=== PATIENT | female | born 1950 | race Caucasian/White ===

== ENCOUNTER → 2016-06-25 | Outpatient (CLI) | payer OTHER ==
[~2016-06-25] MED LIST: ALEVE220 M1 PO; ASA325 MG PO; BENTYL-DPS20 MG PO; CALCIUM600 MG PO; CULTURELLE1 CAP PO; FLONASE 0.05% D16 GM NS; MULTIPLE VITAM1 EACH PO; OXY IR DPS5 MG PO; PROTONIX40 MG PO; SALINE NASAL M126 ML NS; SENOKOT S1 TAB PO; TEARS NATURAL D15 ML OU; TYLENOL DPS325 MG PO; ULTRAM DPS50 MG PO; VITAMIN D-32000 UNI1 PO; XALATAN2.5 ML OU; ZYRTEC DPS10 MG PO
== END | disposition home or self-care (01) ==
LOC: PTH.S 14:00
DX: R19.7 Diarrhea, unspecified (principal)

== ENCOUNTER 2016-07-13 13:27 | Inpatient (IN) | payer OTHER ==
[~2016-07-13] VITALS: Ht 149.9 cm; Wt 56.3 kg
[~2016-07-13 13:27] MED LIST changes: -BENTYL-DPS20 MG PO; -CULTURELLE1 CAP PO
--- NOTE | 2016-07-18 07:57 | HP ---
ADMIT: 07/13/2016 RM/LOC: 519 [facility] MR#: [id number] 26[address] [facility] [address] [place], [place] [address] MYRNA SMYTH [address] [place] [address] History and Physical SEX: F AGE: 65 : 1950 DATE OF SERVICE: CHIEF COMPLAINT: Diarrhea. HISTORY OF PRESENT ILLNESS: The patient is a 65-year-old, white female, who presents to the office today just continually feeling worse with her diarrhea illness. She had been treated with Augmentin for severe sinus infection that she had in May. A few days into treatment she started developing severe diarrhea and tried backing off on her dose and then finally stopped, but the diarrhea never resolved. She added in a probiotic and that is still was not helping, so we did some stool cultures. Did come back positive for C. diff. She said the stools had been bloody at first, but after we started some Flagyl that part improved. The diarrhea really never resolved though. After several days on the Flagyl alone. We ended up adding vancomycin 125 mg every 6 hours. She took that for several more days and still noted no improvement and was in kind of feeling dehydrated and lost about 8 pounds through all of this, so I did increase her dose on vancomycin to 500 mg q.6 hours on Saturday, the . Despite that increase in dose, she still is feeling no better. She is having uncontrollable diarrhea that usually kicks in toward the afternoon and she has been keeping fluids down okay, but it is coming out just as fast as it goes in and had started being more bloody again this week. She has felt hot at times and chilled, but has not been running a fever that she is aware of. Does get crampy abdominal pain before the bowel movement starts picking up, was really starting to feel weak and lightheaded and was unable to get out and do her shopping that she needed to do and has things were not moving in the right direction, elected to admit her for inpatient treatment of this infection. PAST MEDICAL HISTORY: The patient has glaucoma that she takes eye drops for. Also, has osteopenia, but is not on medications due to a low risk score. No personal history of fractures. She had a colonoscopy done for screening in February that showed a possible polyp and some rectal irritation, but on biopsies instead of a polyp they noticed some inflammation and they called it focal active colitis with a prominent lymphoid follicle. She did have some focal cryptitis noted as well. She started on probiotic after that and really felt like her bowels were fairly regular then until she started on the Augmentin for the sinus infection. She has also had problems with allergic rhinitis. Has only been in the hospital for childbirth. HOME MEDICATIONS: Include: 1. Latanoprost 0.005% drops 1 drop at bedtime in both eyes. 2. Vitamin D3, 2000 units daily. 3. Calcium 1200 mg daily. 4. Multivitamin 1 daily. 5. She has also been this week on vancomycin 500 mg q.6 hours p.r.n. ALLERGIES: NO KNOWN DRUG ALLERGIES. FAMILY HISTORY: Mother had Alzheimer's, but ultimately was admitted and of complications from C. diff colitis. Hypertension also runs in the family. ADMIT: 07/13/2016 RM/LOC: 519 [facility] MR#: [id number] [address] [place] [id number] MYRNA SMYTH [address] [place] [address] History and Physical SEX: F AGE: 65 : 1950 SOCIAL HISTORY: The patient lives independently. 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 No tobacco, alcohol, or drug use. REVIEW OF SYSTEMS: CONSTITUTIONAL: Just generalized weakness. HEENT: Denies headaches, nasal congestion, sore throats, or mouth sores. CARDIAC: No chest pain or palpitations. RESPIRATORY: Mildly short of breath with activity, but no cough. GASTROINTESTINAL: As above. GENITOURINARY: She is still urinating a fair amount and it is fairly clear when she goes. No dysuria. SKIN: Denies any rashes. NEUROLOGIC: No focal numbness, tingling. Or weakness. Just generalized malaise. She has noticed her memory has not been as good since she has been so ill with this. MUSCULOSKELETAL: Denies feeling achy. PHYSICAL EXAMINATION: GENERAL: The patient is alert and oriented in no acute distress. VITAL SIGNS: Temp was 97.5, blood pressure 105/74, pulse 85, respirations 16, and sats are 95% on room air, and weight is 122 pounds down from a baseline of 132. HEENT: Head is atraumatic and normocephalic. Sclerae are clear. Pupils are round and reactive. Nares are patent. Oropharynx looks moist and without lesions. NECK: Supple with no lymphadenopathy. HEART: Regular without murmurs. LUNGS: Sound clear to auscultation bilaterally. ABDOMEN: Soft, but mildly tender throughout. No rebound or guarding are noted though. EXTREMITIES: No edema. No rashes are noted. No focal neurologic deficits. LABORATORY DATA: Her white blood cell count is 6.0, hemoglobin 12.9, and platelets 316. CMP shows mildly low potassium at 3.2, albumin is low at 3.0, otherwise her LFTs are all normal. CRP is mildly elevated at 1.31. Procalcitonin was 0.1. Stool white blood cells are negative. Other repeat stool studies are still pending. ADMIT: 07/13/2016 RM/LOC: 519 [facility] MR#: [id number] [address] [address] MYRNA SMYTH [address] [place] [address] History and Physical SEX: F AGE: 65 : 1950 ASSESSMENT: 1. Clostridium difficile colitis with persistent diarrhea that is bloody. 2. Dehydration. 3. Hypokalemia. 4. Abdominal pain. 5. Glaucoma. PLAN: We will admit, and we will have Infectious Disease along with Surgery follow along. Would consider possible flare of some chronic form of colitis given the colitis on her recent colonoscopy. We will await further input from her consults. We will rehydrate and replace her potassium as well. Macarena Ramesh MD/ mabel JOB #: [id number] CC: Macarena Ramesh, Attending Physician Macarena Ramesh, Family Physician
[2016-07-19] MEDS ORDERED: CULTURELLE1 CAP PO (08:33)
[2016-07-19] MEDS ORDERED: BENTYL-DPS20 MG PO (08:34)
--- NOTE | 2016-07-20 09:31 | CO ---
ADMIT: 07/13/2016 RM/LOC: 519 [facility] MR#: [id number] [address] [facility] [address] [place] [id number] MYRNA MCDONALD [address] [address] Consultation SEX: F AGE: 65 : 1950 DATE OF CONSULTATION: 07/13/2016 ATTENDING PHYSICIAN: Macarena Ramesh CONSULTING PHYSICIAN: Eva Fowler MD REASON FOR CONSULT: Recurrent C. difficile colitis. Thank you, Dr. Ramesh, for the consult and involving me in this patient's care. HISTORY OF PRESENT ILLNESS: Ms. Mcdonald is a 65-year-old woman, who presented to the clinic with persistent severe diarrhea and was found to have Clostridium difficile colitis in the beginning of June. Around the end of May, she took Augmentin for sinusitis infection, which caused the diarrhea. She was initially started on metronidazole 500 mg every 8 hours followed by oral vancomycin 125 mg every 6 hours. She continued to have diarrhea and also complained of occasional bloody diarrhea hence her vancomycin was increased to 500 mg every 6 hours on July 10, 2015. She continued to have 10 to 20 bowel movements in a day starting in midafternoon and occasional bloody stools. She denied any nausea or vomiting, but given worsening diarrhea and feeling weak, She was admitted to the hospital today for further management. She had a colonoscopy in February 2016, which showed focal active colitis in descending colon as well as rectum. There was also colonic mucosa with a prominent lymphoid follicle. The patient denies any prior history of inflammatory bowel disease. Per the Pathology, there was also focal cryptitis present. PAST MEDICAL HISTORY: Glaucoma, history of recent Clostridium difficile colitis, and allergic rhinitis. FAMILY HISTORY: Significant for colon cancer in her father and complications from C. difficile colitis in her mother. HOME MEDICATIONS: Reviewed. ALLERGIES: NO KNOWN DRUG ALLERGIES. REVIEW OF SYSTEMS: A 10-point review of systems negative except as mentioned in HPI. PHYSICAL EXAMINATION: VITAL SIGNS: Current temperature 97.5, heart rate 85, respirations 16, blood pressure 105/74, and 95% on room air. GENERAL: In no acute distress. HEENT: Head is normocephalic and atraumatic. Extraocular movements are intact. Oral mucosa is moist. LYMPH: No palpable anterior/posterior cervical or supraclavicular lymphadenopathy. CHEST: Clear to auscultation bilaterally. No wheezes, rales, or rhonchi. CARDIOVASCULAR: S1 and S2 heard. Regular rate and rhythm. ADMIT: 07/13/2016 RM/LOC: 519 [facility] MR#: [id number] [address] [address] MYRNA MCDONALD [address] [place] [address] Consultation SEX: F AGE: 65 : 1950 ABDOMEN: Soft. Active bowel sounds. No tenderness to deep palpation. The patient, however, does report some pain in left lower quadrant. PSYCH: Normal affect. Memory intact. SKIN: No rash noted on exposed skin. NEUROLOGIC: Awake, alert, and oriented x3. DATA REVIEW: CMP shows potassium of 3.2, creatinine 1, CRP 1.3. Normal AST and ALT. CBC shows white count of 6, hemoglobin 12.9, and platelets of 316. ASSESSMENT/PLAN: 1. Diarrhea likely Clostridium difficile colitis relapse. We will repeat her stool for C. difficile PCR and enteric pathogen panel. We will also check stool wbc. I agree with continuing IV metronidazole 500 mg every 8 hours and oral vancomycin, I will change again to 125 mg every 6 hours. I will also repeat CT of abdomen and pelvis. If her diarrhea worsens, we will consider adding fidaxomicin 200 mg twice daily. There is no evidence of ileus on physical exam. Given her bloody diarrhea and report of cryptitis on pathology, inflammatory bowel disease is also in differential. Surgery has been consulted, and she would likely need a repeat colonoscopy or sigmoidoscopy and repeat biopsy. 2. Glaucoma. Thank you for the consult, and I will continue to follow the patient. Eva Fowler MD/ mabel JOB #: [id number] CC: Macarena Ramesh, Attending Physician Macarena Ramesh, Family Physician
--- NOTE | 2016-07-24 13:27 | CO ---
ADMIT: 07/13/2016 RM/LOC: 519 [facility] MR#: [id number] 2620 [facility] [address] [place], [place] [address] MYRNA SMYTH [address] [place], [place] [id number] Consultation SEX: F AGE: 65 : 1950 DATE OF CONSULTATION: 07/13/2016 ATTENDING PHYSICIAN: Macarena Ramesh CONSULTING PHYSICIAN: Naeem Sharma MD REASON FOR CONSULTATION: C. diff colitis. HISTORY OF PRESENT ILLNESS: This patient is a very pleasant, 65-year-old female who sounded like several weeks ago had sinus infection, put her on Augmentin, ultimately at some point got diarrhea, and at some point was placed on some Flagyl, had a C. diff that was positive also, and I think she has been on antibiotics I think for a few weeks, ultimately switched to some vancomycin increased but still just not getting better. Having bloody loose stools and diarrhea and just feeling ill for the last 3 weeks or so. Like I said, I believe back in somewhere around the , she had a C. diff positive stool culture. Her mom actually , she said, of complications of C. diff colitis. At this point, I was asked to follow along because of the colitis. I have reviewed the CT scan and it does not look too bad. She does have some thickening of the sigmoid colon, but the remainder of the colon actually looks pretty good. I have also though been asked by Dr. Fowler to do a flexible sigmoidoscopy with biopsies because on her February colonoscopy done as an outpatient, there was evidence of a crypt abscess and some cryptitis, making sure we are not dealing with something else inflammatory-type del rosario, inflammatory bowel disease going along with this. PAST MEDICAL HISTORY: Significant for some I think osteoporosis. She has had a hip replaced I believe. She has had cervical spine surgery. She had a colonoscopy. No other significant abdominal-type surgeries. Tonsillectomy and sinuses, I think, and maybe a hammertoe. She had a history of some glaucoma, fibromyalgia. CURRENT MEDICATIONS: Please see chart. ALLERGIES: SHE HAS NO KNOWN DRUG ALLERGIES. SOCIAL HISTORY: Denies any significant, tobacco, alcohol, or illicit drugs. She has even recently I think cut out caffeine. FAMILY HISTORY: Family history of her mom dying of, like I said, complications from C. diff colitis. PHYSICAL EXAMINATION: GENERAL: She is pleasant, alert, in no acute distress. ADMIT: 07/13/2016 RM/LOC: 519 [facility] MR#: [id number] 2620 [facility] [address] [place] [address] MYRNA SMYTH [address] [place] [address] Consultation SEX: F AGE: 65 : 1950 HEENT: Her sclerae are nonicteric. Extraocular muscles are intact. CHEST: Appears clear anteriorly without wheezes. HEART: Regular rate and rhythm without murmurs. ABDOMEN: Soft. Mild pain to palpation mostly along the sigmoid left side. No mass. No organomegaly. No peritoneal signs. EXTREMITIES: Without any clubbing or cyanosis. ASSESSMENT AND PLAN: We will follow along currently with a normal white count, no temps. Hopefully with some antibiotics, she will improve. If not and continued to be chronic, maybe somewhere you have to consider a fecal transplant for. We will plan on performing a flexible sigmoidoscopy with biopsies in the morning. Naeem Sharma MD/ mabel JOB #: [id number] CC: Macarena Ramesh, Attending Physician Macarena Ramesh, Family Physician
--- NOTE | 2016-07-24 13:27 | OR ---
ADMIT: 07/13/2016 RM/LOC: 519 [facility] MR#: [id number] [address] [facility] [address] [place], [place] [address] LIBRA MYRNA L [address] [place] [address] Operative/Delivery Room Report SEX: F AGE: 65 : 1950 SURGERY DATE: 07/14/2016 SURGEON: Naeem Sharma MD PREOPERATIVE DIAGNOSIS: Clostridium difficile colitis, question of inflammatory bowel disease. POSTOPERATIVE DIAGNOSIS: Grossly appeared more like a Clostridium difficile colitis. PROCEDURE: Flexible sigmoidoscopy up to 50 cm with multiple biopsies on the way down from the descending colon, sigmoid, and rectum. ANESTHESIA: MAC anesthesia. ESTIMATED BLOOD LOSS: Less than 5 mL. INDICATION FOR PROCEDURE: Please see my consult. DESCRIPTION OF PROCEDURE: After the risks, benefits, possible complications, and alternatives had been explained and informed consent had been obtained, the patient was taken back to the procedure room, underwent sedation. The flexible colonoscope was introduced and actually with her chronic diarrhea was fairly well cleaned out a little bit of liquid stool, appears to have the evidence that would go along more with C. diff colitis up through about 50 cm that I maneuvered to. No real significant ulcerations or lesions seen. I did do multiple biopsies starting at [address] down through the rectum. There were areas that, like I said, grossly appeared to have kind of a pseudomembrane you see with the C. diff colitis. After doing the multiple biopsies, the scope was removed and the procedure terminated. She tolerated it well, was taken to recovery room in stable and satisfactory condition. Naeem Sharma MD/ mabel JOB #: [id number] CC: Macarena Ramesh, Attending Physician Macarena Ramesh, Family Physician
--- NOTE | 2016-08-15 17:14 | DS ---
ADMIT: 07/13/2016 RM/LOC: 519 [facility] MR#: [id number] 2620 [facility] [address] [place], [place] [address] MYRNA SMYTH [address] [place] [address] General Discharge Summary SEX: F AGE: 65 : 1950 ADMISSION DATE: 07/13/2016 DISCHARGE DATE: 07/17/2016 FINAL DIAGNOSES: 1. Clostridium difficile colitis. 2. Inflammatory bowel disease. 3. Bloody diarrhea. 4. Dehydration. 5. Abdominal pain. 6. Abnormal weight loss. 7. Glaucoma. REASON FOR ADMISSION: The patient is a 65-year-old, white female, who had been having some persistent severe diarrhea. It started when she was taking a course of Augmentin for a sinus infection. It did not resolve, and C. diff testing has come back positive, and she had failed outpatient therapy with Flagyl and vancomycin. HOSPITAL COURSE: The patient was admitted and started on IV Flagyl and oral vancomycin, and then Infectious Disease and Surgery were both consulted. Her fluids were replaced, and labs were monitored. She was seen by ID, who checked an abdomen and pelvis CT that showed some colitis changes. Repeat C. diff came back negative, and enteric pathogen panel was negative, and her stool white blood cells were negative. Her diarrhea did become less bloody with the IV fluids, but she continued to have severe diarrhea. Dr. Sharma did see the patient and recommended sigmoidoscopy the following day. That was performed, and Pathology ended up showing some crypt abscesses. Infectious Disease felt most likely she had some underlying inflammatory bowel disease, and C. diff was no longer an issue. At that point, did discuss things with a produce runner in [place] and he agreed to see her as an outpatient. She was discharged on 07/17/2016 to follow up with him as an outpatient later that ADMIT: 07/13/2016 RM/LOC: 519 [facility] MR#: [id number] 26[address] [facility] [address] [place], [place] [address] MYRNA SMYTH [address] [place] [address] General Discharge Summary SEX: F AGE: 65 : 1950 day. DISCHARGE MEDICATIONS: 1. Culturelle 1 capsule b.i.d. 2. Xalatan drops 1 drop in each eye at bedtime. 3. Bentyl 20 mg q.6 hours p.r.n. 4. Tylenol 650 mg q.4 hours p.r.n. 5. Multivitamin daily. 6. Vitamin D3, 2000 units daily. She will follow up with me in 10 to 14 days and will see Dr. Salinas in [place] on the afternoon of discharge for further evaluation and treatment. Macarena Ramesh MD/ mabel JOB #: [id number] CC: Macarena Ramesh MD, Attending Physician Macarena Ramesh MD, Family Physician
== END 2016-07-17 12:10 | disposition home or self-care (01) | DRG 372 ==
LOC: 5MS 13:27
PROVIDERS: ADMIT Family Medicine
PROC: 0DBN8ZX Excision of Sigmoid Colon, Via Natural or Artificial Opening Endoscopic, Diagnostic (ICD-10-PCS; principal; 2016-07-14)
PROC: 0DBP8ZX Excision of Rectum, Via Natural or Artificial Opening Endoscopic, Diagnostic (ICD-10-PCS; principal; 2016-07-14)
DX: A04.7 Enterocolitis due to Clostridium difficile (principal); K92.1 Melena; D62 Acute posthemorrhagic anemia; E86.0 Dehydration; H40.9 Unspecified glaucoma; M85.80 Other specified disorders of bone density and structure, unspecified site; J30.9 Allergic rhinitis, unspecified; E87.6 Hypokalemia; M81.0 Age-related osteoporosis without current pathological fracture; M79.7 Fibromyalgia; K58.9 Irritable bowel syndrome, unspecified; R63.4 Abnormal weight loss